=== PATIENT | male | born 1935 | race Caucasian/White ===

== ENCOUNTER 2018-05-27 17:30 | Inpatient (IN) | payer MEDICARE, BC ==
[2018-05-27 18:03] LABS: #Eosinphils 0.7 thou/uL (0.0-0.7); #Lymphocytes 1.3 thou/uL (1.20-3.40); #Neutrophils 4.3 thou/uL (1.40-6.50); %Basophils 0.7 % (0.0-1.0); %Eosinophils 10.1 % (0.0-10.0); %Lymphocytes 17.9 % (21.0-51.0); %Monocytes 13.5 % (0.0-10.0); %Neutrophils 57.9 % (42.0-75.0); Hemoglobin 12.3 g/dL (14.0-18.0); Mean Corpuscular HGB CONC 33.8 g/dL (32.0-36.0); Mean Corpuscular Hemoglobin 32.2 pg (27.0-31.0); Mean Corpuscular Volume 95.4 fL (78.0-98.0); Mean Platelet Volume 8.1 fL (7.4-10.4); Platelet Count 261 thou/uL (130-400); RBC Distribution Width 12.3 % (11.5-14.5); Red Blood Cell (RBC) Count 3.83 mill/uL (4.70-6.10); White Blood Cell (WBC) Count 7.4 thou/uL (4.8-10.8)
[2018-05-27 18:23] LABS: ALT (SGPT) 23 U/L (8-55); AST (SGOT) 21 U/L (5-34); Albumin 3.3 g/dL (3.4-4.8); Alkaline Phosphatase 56 U/L (40-150); Anion Gap 10 mmol/L (10-20); BUN (Urea Nitrogen) 18 mg/dL (8.4-25.7); Bilirubin, Total 0.7 mg/dL (0.2-1.2); CK (CPK) 70 U/L (30-200); Calc. Creatinine Clearance 0 mL/min (70-130); Calcium 9.1 mg/dL (7.8-10.44); Carbon Dioxide 30 mmol/L (23-31); Chloride 104 mmol/L (98-107); Estimated GFR-MDRD Greater than 90; Globulin 2.6 g/dL (2.4-3.5); Glucose 106 mg/dL (83-110); Lipase 41 U/L (8-78); Potassium 3.7 mmol/L (3.5-5.1); Protein, Total 5.9 g/dL (5.8-8.1); Sodium 140 mmol/L (136-145)
--- NOTE | 2018-05-27 19:19 | RAD ---
CHEST ONE VIEW: 05/27/18 HISTORY: Patient vomited blood, intermittent left sided chest pain. COMPARISON: 12/31/09 study, most recent study available for comparison. Heart size is enlarged with postop sternotomy changes. Chronic lung changes are seen. Pleural changes in the left lung appears stable with what may be chronic pneumothorax. This is unchanged in appearan ce since the previous exam. There are pleural calcifications noted. IMPRESSION: Chronic lung change. Stable exam. POS: MARCIANO
[2018-05-27 21:20] VITALS: BMI 23.8
[2018-05-27] MEDS ORDERED: Ondansetron PF 4 MG/2 ML Vial IVP PRN (22:40)
[2018-05-27] MEDS ORDERED: Ondansetron ODT 4 MG TAB SL PRN (22:40)
[2018-05-27] MEDS ORDERED: Aspirin 325 MG TAB PO SCH (22:45)
[2018-05-28] MEDS ORDERED: Dronedarone HCl 400 MG TAB PO SCH (00:45)
[2018-05-28] MEDS ORDERED: Ezetimibe 10 MG TAB PO SCH (00:45)
[2018-05-28] MEDS ORDERED: ALPRAZolam 0.25 MG TAB PO SCH (00:45)
[2018-05-28] MEDS ORDERED: Metoprolol Tartrate 100 MG TAB PO SCH (00:45)
--- NOTE | 2018-05-28 04:41 | HP ---
CHIEF COMPLAINT: Hemoptysis. HISTORY OF PRESENT ILLNESS: The patient is an 83-year-old male with past medical history of hypertension; atrial fibrillation, on Eliquis; benign prostate hyperplasia; history of lung abscess, who presented to the hospital with hemoptysis. The patient stated that 3 or 4 days ago, he started to have some pain to his left chest area. The patient does have a history of left upper lobe lobectomy due to an abscess. There was some question about the patient being treated for TB; however, the patient states that he was never diagnosed with TB. The patient stated that today, he felt the urge to cough when he coughed. He noticed some bright blood, about a teaspoon of bright blood, which concerned him, so he came into the ER for further evaluation. He denied any lightheadedness, chest pain, or unsteadiness. The patient while he was in the hospital had another urge to cough where he coughed up some dark blood. He did save it in the napkin and showed it to me it was a small amount of some dark blood. The patient denies any recent upper respiratory tract infection. He denies any fevers or chills. The patient stated that he has recently been feeling well except for the eczema, he has been using the cream for it, and also for the past 3 or 4 weeks, he has been having lower leg swelling, which he has been on diabetic, which has been managed by Cardiology. PAST MEDICAL HISTORY: He has a history of hypertension; atrial fibrillation, currently on Eliquis. He has a history of GI bleed, on Pradaxa. He has a history of benign prostate hyperplasia. He also has a history of eczema. PAST SURGICAL HISTORY: He has had angioplasties. He has had CABG x4, I believe in 2000. He has also had left upper lobe lobectomy. He has had EGDs also. FAMILY HISTORY: No history of heart disease, cancers, or stroke. SOCIAL HISTORY: He is a former smoker, quit in 1973. No alcohol use, drug use. He is a full code. Lives with his family. ALLERGIES: HE IS ALLERGIC TO IODINE AND SULFA. MEDICATIONS: As of the followin. Levothyroxine 25 mcg daily. 2. Lasix 40 mg daily. 3. Zetia 10 mg at bedtime. 4. Multaq 400 mg b.i.d. 5. Xanax 0.25 at bedtime. 6. Aspirin 81 mg b.i.d. 7. Apixaban 5 mg b.i.d. 8. Propranolol 20 mg daily. 9. Clonidine 0.1 p.r.n. 10. Hydralazine 50 mg b.i.d. 11. Metoprolol 150 mg at bedtime. 12. Flomax 0.4 daily. REVIEW OF SYSTEMS: All negative except for the ones mentioned above in HPI. PHYSICAL EXAMINATION: VITAL SIGNS: Temperature of 97.7, pulse 87, respiratory rate 20, oxygen saturation 92% on room air, and blood pressure 138/62. GENERAL: He is awake, alert, and oriented x3. Does not appear in any distress. CV: S1 and S2 present. No murmurs, rubs, or gallops. LUNGS: Clear to auscultation. No rhonchi or wheezes noted. ABDOMEN: Soft and nontender. Bowel sounds are present x2. EXTREMITIES: No edema. Pedal pulses are present x2. SKIN: He has gotten a significant maculopapular rash to his bilateral lower extremities and back area. NEUROLOGIC: No focal deficits noted. HEENT: Normocephalic and atraumatic. No lymphadenopathy noted. LABORATORY RESULTS: As of the following; WBCs of 7.4, hemoglobin of 12.3, hematocrit of 36.6, and platelets of 261. Chemistry; sodium of 144, potassium 4.4, BUN of 13, creatinine 0.95. His LFTs are normal. His BNP was 1057. Troponin x3 were negative. Urine was normal. The patient did have a chest x-ray, that just indicated chronic lung changes. ASSESSMENT AND PLAN: The patient is an 83-year-old male,who comes to the hospital for hemoptysis. 1. Hemoptysis. He has only had two episodes. His H and H currently are stable. I do not have a previous one for comparison. Pulmonology has been consulted. I did explain to the patient that this could have just been combination and the fact that he is on Eliquis and has had a lobectomy, possibly could have had a scar tissue which could have been irritated and causing him to have hemoptysis. At this time, conservative management unless the patient starts to have extensive amounts of hemoptysis. At this time, a bronchoscopy would be necessary. However, I will defer the further plan to Pulmonary. 2. Atrial fibrillation, currently on Eliquis. We will hold the Eliquis. Cardiology has been consulted. The patient in the past also has had a bleed on Pradaxa. He recently had a bleed, I believe in his right retinal area and his Eliquis was held. 3. Hypertension, we will continue his home medications. 4. Hypothyroidism, we will continue his home medications. 5. Deep vein thrombosis prophylaxis, we will put the patient on some SCDs for now and continue to monitor. At this point, I do not think this patient requires a CT. However, I will defer that to Pulmonary since he is allergic to iodine. Job ID: [id number]
[2018-05-28 05:11] LABS: #Eosinphils 0.9 thou/uL (0.0-0.7); #Lymphocytes 0.9 thou/uL (1.20-3.40); #Monocytes 0.8 thou/uL (0.11-0.59); #Neutrophils 3.8 thou/uL (1.40-6.50); %Basophils 0.7 % (0.0-1.0); %Eosinophils 14.2 % (0.0-10.0); %Lymphocytes 13.7 % (21.0-51.0); %Monocytes 12.1 % (0.0-10.0); %Neutrophils 59.4 % (42.0-75.0); Hemoglobin 10.9 g/dL (14.0-18.0); Mean Corpuscular HGB CONC 33.9 g/dL (32.0-36.0); Mean Corpuscular Hemoglobin 32.9 pg (27.0-31.0); Mean Corpuscular Volume 96.9 fL (78.0-98.0); Platelet Count 220 thou/uL (130-400); RBC Distribution Width 12.3 % (11.5-14.5); Red Blood Cell (RBC) Count 3.32 mill/uL (4.70-6.10); White Blood Cell (WBC) Count 6.5 thou/uL (4.8-10.8)
[2018-05-28 05:36] LABS: Anion Gap 8 mmol/L (10-20); BUN (Urea Nitrogen) 14 mg/dL (8.4-25.7); Calc. Creatinine Clearance 89 mL/min (70-130); Carbon Dioxide 29 mmol/L (23-31); Chloride 107 mmol/L (98-107); Estimated GFR-MDRD Greater than 90; Glucose 80 mg/dL (83-110); Potassium 3.2 mmol/L (3.5-5.1); Sodium 141 mmol/L (136-145)
[2018-05-28] MEDS: Levothyroxine Sodium 25 MCG TAB PO SCH (06:02)
[2018-05-28] MEDS: Dronedarone HCl 400 MG TAB PO SCH ×2 (07:59→16:16)
[2018-05-28] MEDS: Furosemide 40 MG TAB PO SCH (08:00)
[2018-05-28] MEDS: Tamsulosin HCl 0.4 MG CAP PO SCH (08:00)
[2018-05-28] MEDS: hydrALAZINE 25 MG TAB PO SCH ×3 (10:49→21:22)
--- NOTE | 2018-05-28 10:49 | CON ---
DATE OF CONSULTATION: HISTORY OF PRESENT ILLNESS: Russell Maldonado is an 83-year-old gentleman, retired from [employer], who smoked a pack a day for about 20 years, quit smoking almost 40 years ago, who presents with a 2-day history of hemoptysis, coughed up 2 times bright red blood, last one was last night, 2 o'clock in the morning. His x-ray shows extensive scarring, pleural thickening in the left chest with what appears to be maybe a retrocardiac density of left lung. Denies any fever, chills, or sweats. Denies any epistaxis. The patient on most days can walk at least a couple of miles without getting markedly short of breath. He was diagnosed to have Mycobacterium avium complex TB in 1975 in [place], received 2 years of treatment. He eventually underwent what appears to be a left upper lobe lobectomy for necrotizing infection as per the patient. He has bronchitis on a yearly basis, takes his flu shot. PAST MEDICAL HISTORY: Coronary artery disease, status post 2 angioplasties, status post 2 CABGs; hypothyroidism; BPH; hyperlipidemia; and high cholesterol. PAST SURGICAL HISTORY: Left upper lobe lobectomy; bypass surgery; 2 angioplasties; and extensive rash, apparently eczema. Has had tail puller see him including skin biopsy, nondiagnostic. SOCIAL HISTORY: As noted. Alcohol, none. HOME MEDICATIONS: 1. Flomax 0.4. 2. Synthroid 25. 3. Inderal 20. 4. Hydralazine 50. 5. Xanax p.r.n. 6. Lopressor 150. 7. Multaq 400 twice a day. 8. Lasix 40. 9. Zetia 10. 10. Catapres 0.1. 11. Aspirin 81. 12. Eliquis 5 mg twice a day. ALLERGIES: SULFA, IODINE. REVIEW OF SYSTEMS: Otherwise, ten-point negative. OBJECTIVE: GENERAL: On examination, no acute distress. VITAL SIGNS: Sats are 96% on room air, respirations 18, temperature 98, pulse 61, and blood pressure 119/57. CHEST: Bilateral rhonchi and crackles. CARDIAC: Normal S1 and S2. No gallops. ABDOMEN: No masses. LABORATORY DATA: White count of 6000, H and H of 10 and 32, and platelet count is normal. Lytes are normal. Creatinine is unremarkable. BNP is elevated. IMPRESSION: 1. Hemoptysis, bronchitis, bronchiectasis. 2. Congestive heart failure. 3. Coronary artery disease. 4. Former smoker. 5. Left upper lobe lobectomy. PLAN: 1. CT chest being ordered. 2. He is allergic to iodine without contrast. 3. diagnostic bronchoscopy. Consultation note, 70 minutes, 50% direct patient care. Job ID: [id number]
--- NOTE | 2018-05-28 11:12 | CT ---
CT CHEST PERFORMED WITHOUT CONTRAST ENHANCEMENT: Comparison: 05-16-18 History: Hemoptysis, shortness of breath. Left sided chest pain. History of left upper lobe lobectomy by history. FINDINGS: Volume loss changes of the left lung are noted. There is abrupt termination of the left upper lobe br onchus consistent with the history of left upper lobe lobectomy. There is extensive pleural based teddy cifications seen. There has been development of a small left pleural effusion since the prior examina tion and development of the parenchymal changes mainly some ground glass opacity within the left lowe r lobe. Changes would suggest an acute infiltrative process developing. The right lung shows emphysem atous type change. Some parenchymal change in the right upper lobe appears to represent scar. There h as been development of a small amount of right sided effusion. Post op sternotomy changes are seen. No mediastinal adenopathy or mass. IMPRESSION: 1. Left upper lobe lobectomy change. Extensive left sided pleural based calcifications. 2. Development of small bilateral pleural effusions, left slightly larger than right, and some ground glass opacity in the left lower lobe which is new as compared to the prior exam, suggesting some dev eloping infiltrate in this area. 3. Incidental note is made of gallstones. POS: [facility]
[2018-05-28] MEDS ORDERED: Terbinafine 250 MG TAB PO SCH (15:00)
--- NOTE | 2018-05-28 18:59 | PDOC.PN ---
- Subjective Encounter Start Date: 05/28/18 Encounter Start Time: 18:55 Subjective: f/u for hemoptysis on chronic Eliquis. Approx 3 episodes of small amount -: of hemoptysis today. Off Eliquis and ASA. - Objective MAR Reviewed: Yes Vital Signs & Weight: Vital Signs (12 hours) Temp Pulse Resp BP BP Pulse Ox 05/28/18 16:14 97.7 F 65 18 136/61 95 05/28/18 11:49 97.6 F 66 16 109/56 L 96 05/28/18 10:49 61 137/60 05/28/18 07:47 97.8 F 61 18 119/57 L 96 Weight Weight 175 lb 4.8 oz I&O: 05/27/18 05/28/18 05/29/18 06:59 06:59 06:59 Intake Total 720 Balance 720 Result Diagrams: 05/28/18 04:51 05/28/18 04:51 Additional Labs: Laboratory Tests 05/27/18 05/27/18 05/27/18 17:42 17:42 17:42 Hgb Neutrophils % Potassium 3.7 Troponin I 0.015 B-Natriuretic Peptide 1057.0 H 05/27/18 05/27/18 05/28/18 17:42 20:30 00:19 Hgb 12.3 L Neutrophils % 57.9 Potassium Troponin I 0.010 0.018 B-Natriuretic Peptide Radiology Reviewed by me: Yes (CT chest - chronic changes, ?infiltrate in LLL) EKG Reviewed by me: Yes (Tele - SR in 90's) Phys Exam - Physical Examination Constitutional: NAD HEENT: PERRLA, sclera anicteric, oral pharynx no lesions Neck: no nodes, no JVD, supple, full ROM S1, S2 Cardiovascular: RRR, no significant murmur, no rub, gallop Gastrointestinal: soft, non-tender, no distention, positive bowel sounds Musculoskeletal: no edema, pulses present Neurological: normal sensation, moves all 4 limbs Psychiatric: A&O x 3 Skin: normal turgor, cap refill <2 seconds Dx/Plan (1) Hemoptysis Code(s): R04.2 - HEMOPTYSIS Status: Acute Comment: Likely due to Eliquis, ? 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 (CURRENT) USE OF ANTICOAGULANTS Status: Chronic Comment: Hold Song (3) HTN (hypertension) Code(s): I10 - ESSENTIAL (PRIMARY) HYPERTENSION Status: Chronic Qualifiers: Hypertension type: essential hypertension Qualified Code(s): I10 - Essential (primary) hypertension Comment: Resume home BP regimen, serial monitoring (4) Acute blood loss anemia Code(s): D62 - ACUTE POSTHEMORRHAGIC ANEMIA Status: Acute Comment: Secondary to hemoptysis, serial H/H monitoring - Plan plan discussed w/ family, continue antibiotics, social psychologist, out of bed/ ambulate, DVT proph w/SCDs Stable currently -: D/C Eliquis/ASA -: Start Cefepime 2gm IV BID -: ? Bronchoscopy per Pulmonology -: AM lab: CBC * Convert to inpt status
--- NOTE | 2018-05-28 19:23 | CON ---
DATE OF CONSULTATION: HISTORY OF PRESENT ILLNESS: Russell Maldonado is an 83-year-old white male with longstanding history of coronary artery disease. I have followed for 30 years since 1988. In March 1988 and in January 1989, he underwent PTCA of the proximal LAD. He had a totally occluded diagonal that filled retrograde at that time. In April 2000, he had inferior ischemia on stress echo testing and underwent cardiac catheterization. This revealed totally occluded right coronary artery, totally occluded diagonal, totally occluded small obtuse marginal, 70% proximal tandem lesions in the LAD and lesion of the proximal third. Ejection fraction was about 30%. He underwent CABG x4 with BELL to the LAD and saphenous vein graft to the obtuse marginal one, diagonal and right posterior descending by Dr. Warner. After surgery, he continued to follow up regularly in the office. It was somewhat difficult to control hypertension. He underwent renal angiogram by Dr. Villatoro, which revealed no evidence of renal artery stenosis. In April 2007, he was seen in the office with palpitations and shortness of breath and found to be in atrial fibrillation. He was started on Coumadin as well as Toprol-XL for rate control. One week later, he was seen back in the office and was in sinus rhythm. He had previous history of GI bleeds and was complaining of nosebleeds and ultimately in June 2007, Coumadin was discontinued. He was admitted in December 2009 when he began to feel palpitations as well as shortness of breath and weakness. He presented to the emergency room, was in atrial fibrillation with fast ventricular response. He was given Lovenox 1 mg/kg. During that hospitalization in retrospect, he has stated that he may have been in atrial fibrillation for 2 or 3 weeks. He was placed on Lovenox, Coumadin, and Multaq 400 mg b.i.d. After loading with Multaq, he underwent transesophageal echo by Dr. Santillan and was found to have no evidence of left atrial thrombus. There was [id number] mitral regurgitation, tricuspid regurgitation, mild aortic insufficiency. With 200 joules, he was cardioverted to sinus rhythm. He had significant improvement in his energy level after cardioversion and as noted above in retrospect, he may have been in it for several weeks. He continued to be in sinus rhythm. He is transitioned from Coumadin to Pradaxa. In February 2011, he was admitted with upper gastrointestinal bleed. Pradaxa was discontinued and he was transfused. He was only found to have gastritis. Ultimately, he was transitioned to Eliquis. His most recent significant problem has been does not seem to clear. Eliquis was stopped for a period of time, hydrochlorothiazide was stopped, and irbesartan has been stopped various times and he continues with the rash. When he was last seen in the office on May 06, 2018, he had significant lower extremity edema and he was started on hydrochlorothiazide and ultimately furosemide. He now is admitted with hemoptysis. He does have a history of infection with Mycobacterium avium in 1975 and received 2 years of treatment. With cough, he may have a feeling of some discomfort in his chest. 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 PAST SURGICAL HISTORY: CABG, resection of left lower lobe via thoracotomy for bronchiectasis and atypical tuberculosis. MEDICATIONS: 1. Eliquis 5 mg b.i.d. 2. Multaq 400 mg daily. 3. Flomax 0.4 mg daily. 4. Xanax 0.25 q.h.s. 5. Aspirin 81 b.i.d. 6. Clonidine 0.1 p.r.n. 7. Zetia 10 mg q.h.s. 8. Furosemide 40 daily. 9. Hydralazine 50 b.i.d. 10. Synthroid 25 mcg daily. 11. Propranolol 20 mg daily p.r.n. ALLERGIES: IODINE AND SULFA. SOCIAL HISTORY: He stopped smoking in the 70s. He does not drink. FAMILY HISTORY: Father had myocardial infarction, at the age of 60. REVIEW OF SYSTEMS: A 10-point review of systems is otherwise unremarkable. PHYSICAL EXAMINATION: VITAL SIGNS: Blood pressure 136/61, pulse 65. HEENT: PERRL. CHEST: Reveals occasional crackles on the left. CARDIOVASCULAR: S1 and S2 normal without any S3, S4, or murmurs. ABDOMEN: Normal bowel sounds without tenderness or organomegaly. EXTREMITIES: Reveal 1+ pretibial edema, however, this is better than he was last seen 3 weeks ago. NEUROLOGIC: Grossly intact. SKIN: Reveals diffuse erythematous rash. LABORATORY DATA: EKG revealed normal sinus rhythm with right bundle-branch block. Cardiac enzymes are unremarkable. Hemoglobin 10.9, hematocrit 32.2, white count 6500, platelets 220,000. Sodium 141, potassium 3.2, chloride 107, carbon dioxide 29, BUN 14, creatinine 0.71. BNP 1057.0. IMPRESSION: 1. Hemoptysis. Eliquis have been discontinued at this time. 2. Generalized rash. This does not appear to be due to irbesartan, hydrochlorothiazide, or Eliquis. 3. Status post coronary artery bypass graft. 4. Paroxysmal atrial fibrillation. 5. History of hypercholesterolemia. 6. Hypertension. 7. Positive family history. 8. Varicose veins. PLAN: Eliquis has been discontinued. We will continue to follow the patient with you. There has been some concern that Multaq may be the cause of his rash. This will be a good time to discontinue the Multaq and transition to another antiarrhythmic such as propafenone to see if the Multaq is playing a role in his rash. I do not feel that his atypical chest discomfort needs to be further evaluated. Job ID: [id number]
[2018-05-28] MEDS: Ezetimibe 10 MG TAB PO SCH (21:12)
[2018-05-28] MEDS: Metoprolol Tartrate 100 MG TAB PO SCH (21:12)
[2018-05-28] MEDS: Cefepime 2 GM in Sodium Chloride 0.9% 100 ML IVPB SCH (21:13)
[2018-05-28] MEDS: ALPRAZolam 0.25 MG TAB PO SCH (22:52)
[2018-05-28] MEDS: Propafenone HCl 150 MG TAB PO SCH (23:49)
[2018-05-29] MEDS: Levothyroxine Sodium 25 MCG TAB PO SCH (05:25)
[2018-05-29] MEDS: Propafenone HCl 150 MG TAB PO SCH ×3 (05:29→21:44)
[2018-05-29 06:20] LABS: Band 3 % (5-11); Eosinophils 8 % (0-10); Hemoglobin 11.3 g/dL (14.0-18.0); Lymphocytes 4 % (21-51); MDiff Complete? YES; Mean Corpuscular HGB CONC 33.6 g/dL (32.0-36.0); Mean Corpuscular Hemoglobin 32.5 pg (27.0-31.0); Mean Corpuscular Volume 96.8 fL (78.0-98.0); Mean Platelet Volume 7.9 fL (7.4-10.4); Monocytes 12 % (0-10); Neutrophil 73 % (42-75); Platelet Count 250 thou/uL (130-400); RBC Distribution Width 12.3 % (11.5-14.5); Red Blood Cell (RBC) Count 3.46 mill/uL (4.70-6.10); White Blood Cell (WBC) Count 7.6 thou/uL (4.8-10.8)
[2018-05-29] MEDS ORDERED: Potassium Chloride 10 MEQ TAB PO SCH (08:00)
[2018-05-29] MEDS: Tamsulosin HCl 0.4 MG CAP PO SCH (08:36)
[2018-05-29] MEDS: Sodium Chloride 0.9% 10 ML ONE (08:36)
[2018-05-29] MEDS: Furosemide 40 MG TAB PO SCH (08:37)
[2018-05-29] MEDS: hydrALAZINE 25 MG TAB PO SCH ×2 (08:39→21:42)
[2018-05-29] MEDS ORDERED: Terbinafine 250 MG TAB PO SCH (09:00)
[2018-05-29] MEDS: Cefepime 2 GM in Sodium Chloride 0.9% 100 ML IVPB SCH ×3 (09:49→17:12)
--- NOTE | 2018-05-29 09:50 | PRG ---
DATE OF SERVICE: SUBJECTIVE: Russell Maldonado is awake, alert, responsive, no further hemoptysis. OBJECTIVE: Temperature 97, pulse 71, respiration 18, sats 98% on room air, blood pressure is 109/55. CHEST: Decreased breath sounds, minimal rhonchi, crackles left base. CARDIAC: Normal S1, S2. No gallops. ABDOMEN: No masses. H and H are stable 11 and 33. IMPRESSION: 1. Hemoptysis. Noted bronchiectatic changes, left base, probably accounting for some hemoptysis, probably aggravated by the Eliquis. 2. Status post left upper lobe lobectomy. PLAN: Pulmonary weeks much improved, p.o. antibiotics. Disposition as per Cardiology. We will follow. Job ID: [id number]
[2018-05-29] MEDS: Terbinafine 250 MG TAB PO SCH (11:41)
--- NOTE | 2018-05-29 12:57 | PQF ---
OBDULIO RAINES MALIK MD [id number] CLINICAL DOCUMENTATION IMPROVEMENT CLARIFICATION FORM: ICD-10 Updated PLEASE DO AN ADDENDUM TO THE PROGRESS NOTE WITH ANY DOCUMENTATION UPDATES OR ADDITIONS AND CARRY THROUGH TO DC SUMMARY. THANK YOU. DATE: 05/29/18 ATTN: Dr. Dumont Please exercise your independent, professional judgment in responding to the clarification form. Clinical indicators are provided on the bottom of this form for your review Please check appropriate box(s): HEART FAILURE: A. TYPE: [ ] Systolic / HFrEF [ ] Diastolic / HFpEF [ ] Combined Systolic / Diastolic B. ACUITY [ ] Acute [ ] Acute on Chronic [ ] Chronic [ ] Other diagnosis [ ] Unable to determine In addition, please specify: Present on Admission (POA): [ ] Yes [ ] No [ ] Unable to determine For continuity of documentation, please document condition throughout progress notes and discharge summary. Thank You. CLINICAL INDICATORS - SIGNS / SYMPTOMS / LABS 05/28 Card note: LAST EF 30% IN [facility] 2000 Peripheral edema--> +1 pretibial edema per 05/28 Cardiology note Elevated BNP --> BNP 1057 per 05/27 lab RISKS: History of CAD s/p CABG/HTN 05/28 Card note History of CHF per 05/28 pulmonary note Seen in the office on May 06, 2018, he had significant lower extremitiy edema and started on hctz and ultimately furosemide 05/28 Card note TREATMENTS: Administration of BB--> metoprolol 05/28 to date per MAR Cardiac monitoring / telemetry 05/27 to date per orders Diuretics--> lasix po 05/28 to date per APR Thank you, Geraldine Swan RN, CCDS (This form is maintained as a part of the permanent medical record) 2015 [employer] All Rights Reserved Geraldine Swan RN, BSN, CCDS [email or web address] MEDICAL CENTERLeila
[2018-05-29] MEDS ORDERED: hydrALAZINE 25 MG TAB PO PRN (16:07)
--- NOTE | 2018-05-29 16:27 | PDOC.PN ---
- Subjective Encounter Start Date: 05/29/18 Encounter Start Time: 15:00 Patient seen and examined for hemoptysis. No new episodes. No CP/SOB. No other complaints. No overnight events - Objective MAR Reviewed: Yes Vital Signs & Weight: Vital Signs (12 hours) Temp Pulse Resp BP BP Pulse Ox 05/29/18 15:29 97.7 F 76 18 126/61 98 05/29/18 11:38 97.8 F 65 18 120/58 L 98 05/29/18 08:35 97.9 F 71 18 109/55 L 98 Weight Weight 179 lb 2 oz I&O: 05/28/18 05/29/18 05/30/18 06:59 06:59 06:59 Intake Total 720 750 200 Output Total 800 175 Balance 720 -50 25 Result Diagrams: 05/29/18 04:44 05/28/18 04:51 EKG Reviewed by me: Yes (Tele SR) Phys Exam - Physical Examination Constitutional: NAD Respiratory: no wheezing, no rhonchi Cardiovascular: RRR, no rub Gastrointestinal: soft, non-tender, positive bowel sounds Musculoskeletal: no edema Neurological: non-focal, moves all 4 limbs Dx/Plan - Plan DVT proph w/SCDs IMPRESSION: Hemoptysis Acute on chronic systolic heart failure - ACC stage C Acute blood loss anemia Gen rash ?etio ?Multaq induced CAD Paroxysmal Afib HTN Hypokalemia HLD PLAN: Eliquis/ASA on hold On IV Lasix On IV Atbx Replace Potassium Cardio/Pulm following Multaq dced on Propafenone Cont current meds as below AM labs DC in 24-48 hr if ok with consultants Review of Systems - Review of Systems Respiratory: negative: Cough, Dry, Shortness of Breath, Hemoptysis, SOB with Excertion, Pleuritic Pain, Sputum, Wheezing Cardiovascular: negative: chest pain, palpitations, orthopnea, paroxysmal nocturnal dyspnea, edema, light headedness, other Gastrointestinal: negative: Nausea, Vomiting, Abdominal Pain, Diarrhea, Constipation, Melena, Hematochezia, Other - Medications/Allergies Allergies/Adverse Reactions: Allergies Allergy/AdvReac Type Severity Reaction Status Date / Time iodine Allergy Verified 05/27/18 21:44 Sulfa (Sulfonamide Allergy Verified 05/27/18 21:44 Antibiotics) Medications: Current Medications Alprazolam (Xanax) 0.25 mg PO HS [facility] Last Admin: 05/28/18 22:52 Dose: 0.25 mg Ezetimibe (Zetia) 10 mg PO HS [facility] Last Admin: 05/28/18 21:12 Dose: 10 mg Furosemide (Lasix) 40 mg PO DAILY [facility] Last Admin: 05/29/18 08:37 Dose: 40 mg Hydralazine HCl (Apresoline) 50 mg PO BID [facility] Last Admin: 05/29/18 08:39 Dose: 50 mg Hydralazine HCl (Apresoline) 50 mg PO DAILY PRN PRN Reason: SBP GREATER THAN 160 Cefepime HCl 2 gm/ Sodium (Chloride) 100 mls @ 200 mls/hr IVPB 0600,1800 [facility] Levothyroxine Sodium (Synthroid) 25 mcg PO 0600 [facility] Last Admin: 05/29/18 05:25 Dose: 25 mcg Metoprolol Tartrate (Lopressor) 150 mg PO HS [facility] Last Admin: 05/28/18 21:12 Dose: 150 mg (Pimecrolimus [ Elidel 1% Cream] 1 Applic) 1 each TOP BID PRN PRN Reason: eczema Potassium Chloride (Klor-Con 10) 20 meq PO BID-[facility] Stop: 05/29/18 17:01 Last Admin: 05/29/18 08:32 Dose: 20 meq Propafenone HCl (Rythmol) 150 mg PO Q8HR [facility] Last Admin: 05/29/18 13:44 Dose: 150 mg Tamsulosin HCl (Flomax) 0.4 mg PO DAILY [facility] Last Admin: 05/29/18 08:36 Dose: 0.4 mg Terbinafine HCl (Lamisil) 250 mg PO 1200 [facility] Last Admin: 05/29/18 11:41 Dose: 250 mg
[2018-05-29] MEDS ORDERED: Furosemide 40 MG/4 ML VIAL SLOW IVP SCH (16:45)
[2018-05-29] MEDS ORDERED: Sodium Chloride 0.9% 10 ML ONE (17:03)
[2018-05-29] MEDS: Potassium Chloride 20 MEQ TAB PO SCH (17:59)
[2018-05-29] MEDS: Ezetimibe 10 MG TAB PO SCH (21:42)
[2018-05-29] MEDS: ALPRAZolam 0.25 MG TAB PO SCH (22:50)
[2018-05-29] MEDS: Metoprolol Tartrate 100 MG TAB PO SCH (22:50)
[2018-05-30] MEDS: Cefepime 2 GM in Sodium Chloride 0.9% 100 ML IVPB SCH ×2 (05:23→17:25)
[2018-05-30] MEDS: Furosemide 40 MG/4 ML VIAL SLOW IVP SCH ×2 (05:23→14:50)
[2018-05-30] MEDS: Levothyroxine Sodium 25 MCG TAB PO SCH (05:24)
[2018-05-30] MEDS: Propafenone HCl 150 MG TAB PO SCH ×3 (05:28→22:03)
[2018-05-30 05:53] LABS: Hemoglobin 13.3 g/dL (14.0-18.0); Platelet Count 323 thou/uL (130-400)
[2018-05-30 06:09] LABS: Anion Gap 11 mmol/L (10-20); BUN (Urea Nitrogen) 20 mg/dL (8.4-25.7); Calc. Creatinine Clearance 63 mL/min (70-130); Calcium 8.9 mg/dL (7.8-10.44); Carbon Dioxide 28 mmol/L (23-31); Chloride 106 mmol/L (98-107); Estimated GFR-MDRD 70; Glucose 108 mg/dL (83-110); Magnesium 2.4 mg/dL (1.6-2.6); Potassium 3.7 mmol/L (3.5-5.1); Sodium 141 mmol/L (136-145)
[2018-05-30] MEDS: hydrALAZINE 25 MG TAB PO SCH ×2 (09:28→20:59)
[2018-05-30] MEDS: Potassium Chloride 20 MEQ TAB PO SCH ×2 (09:28→17:27)
[2018-05-30] MEDS: Tamsulosin HCl 0.4 MG CAP PO SCH (09:28)
[2018-05-30] MEDS: Sodium Chloride 0.9% 10 ML ONE ×2 (09:30→14:50)
[2018-05-30] MEDS: Terbinafine 250 MG TAB PO SCH (12:28)
--- NOTE | 2018-05-30 12:55 | PDOC.PN ---
- Subjective Encounter Start Date: 05/30/18 Encounter Start Time: 12:54 Mr. Maldonado was seen today in follow-up of Hemoptysis. He continues to cough up some blood, but it is usually only once or twice in the morning, and then that is all. He does not have any other complaints. - Objective MAR Reviewed: Yes Vital Signs & Weight: Vital Signs (12 hours) Temp Pulse Resp BP BP BP BP 05/30/18 12:00 97.4 F L 69 18 138/69 05/30/18 09:28 95 117/58 L 05/30/18 08:00 97.5 F L 95 16 117/58 L 05/30/18 04:00 97.4 F L 66 16 104/59 L Pulse Ox 05/30/18 12:00 05/30/18 09:28 05/30/18 08:00 98 05/30/18 04:00 93 L Weight Weight 181 lb 9 oz I&O: 05/29/18 05/30/18 05/31/18 06:59 06:59 06:59 Intake Total 750 1760 Output Total 800 1715 Balance -50 45 Result Diagrams: 05/30/18 05:22 05/30/18 05:22 Phys Exam - Physical Examination HEENT: PERRLA Respiratory: no wheezing, no rales, no rhonchi Cardiovascular: no significant murmur, no rub, irregular Gastrointestinal: soft, non-tender, no distention, positive bowel sounds Musculoskeletal: no edema Dx/Plan (1) Bronchiectasis Code(s): J47.9 - BRONCHIECTASIS, UNCOMPLICATED Status: Acute (2) Hemoptysis Code(s): R04.2 - HEMOPTYSIS Status: Acute Comment: Likely due to Eliquis, ? LLL infectious process, Pulmonology consulted and considering bronchoscopy, serial H/H, start Cefepime 2gm IV BID (3) Chronic anticoagulation Code(s): Z79.01 - MANAGER PORT (CURRENT) USE OF ANTICOAGULANTS Status: Chronic Comment: Hold Eliquis (4) HTN (hypertension) Code(s): I10 - ESSENTIAL (PRIMARY) HYPERTENSION Status: Chronic Qualifiers: Hypertension type: essential hypertension Qualified Code(s): I10 - Essential (primary) hypertension Comment: Resume home BP regimen, serial monitoring (5) Atrial fibrillation Code(s): I48.91 - UNSPECIFIED ATRIAL FIBRILLATION Status: Chronic Qualifiers: Atrial fibrillation type: paroxysmal Qualified Code(s): I48.0 - Paroxysmal atrial fibrillation - Plan * Hemoptysis- this is presumed to be due to Bronchiectasis, while on anticoagulants. Elquis and aspirin are on hold * HTN- blood pressure is stable. * AFIB- his heart rate is stable * Echo has been ordered by Dr. Chicas, and home when cleared by Cardiology
--- NOTE | 2018-05-30 13:18 | PRG ---
DATE OF SERVICE: 05/30/2018 SUBJECTIVE: Mr. Maldonado is still coughing up occasional blood. Otherwise, he is breathing well and has no complaints. OBJECTIVE: VITAL SIGNS: Temperature is 97.4, pulse 69, blood pressure 117/50, O2 saturation 98%, and blood pressure 130/69. HEENT: Unremarkable. NECK: No JVD. CHEST: Fairly clear. CARDIAC: S1 and S2, irregular. ABDOMEN: Soft. EXTREMITIES: No edema. LABORATORY DATA: Hemoglobin 13.3 and platelet count 323. Sodium 141, BUN 20, creatinine 1.0, and glucose 108. ASSESSMENT: 1. Bronchiectasis with hemoptysis. 2. Status post left upper lobectomy. 3. Atrial fibrillation. PLAN: Continue the antibiotics. Should be able to switch to oral Omnicef if okay with primary team. I would treat him for a total of 10 days with antibiotics. Job ID: [id number]
[2018-05-30] MEDS ORDERED: Sodium Chloride 0.9% 10 ML ONE (16:50)
[2018-05-30] MEDS: Metoprolol Tartrate 100 MG TAB PO SCH (20:58)
[2018-05-30] MEDS: Ezetimibe 10 MG TAB PO SCH (21:01)
[2018-05-30] MEDS: ALPRAZolam 0.25 MG TAB PO SCH (21:02)
[2018-05-30] MEDS ORDERED: diphenhydrAMINE 25 MG CAP PO PRN (23:11)
[2018-05-31] MEDS: Furosemide 40 MG/4 ML VIAL SLOW IVP SCH ×2 (05:49→12:59)
[2018-05-31] MEDS: Propafenone HCl 150 MG TAB PO SCH ×2 (06:04→13:00)
[2018-05-31] MEDS: Cefepime 2 GM in Sodium Chloride 0.9% 100 ML IVPB SCH (06:04)
[2018-05-31] MEDS: Levothyroxine Sodium 25 MCG TAB PO SCH (06:04)
[2018-05-31 06:09] LABS: Anion Gap 10 mmol/L (10-20); BUN (Urea Nitrogen) 25 mg/dL (8.4-25.7); Calc. Creatinine Clearance 74 mL/min (70-130); Calcium 8.5 mg/dL (7.8-10.44); Carbon Dioxide 29 mmol/L (23-31); Chloride 108 mmol/L (98-107); Estimated GFR-MDRD 86; Glucose 86 mg/dL (83-110); Magnesium 2.2 mg/dL (1.6-2.6); Potassium 3.5 mmol/L (3.5-5.1); Sodium 143 mmol/L (136-145)
[2018-05-31] MEDS: hydrALAZINE 25 MG TAB PO SCH (08:45)
[2018-05-31] MEDS: Potassium Chloride 20 MEQ TAB PO SCH (08:45)
[2018-05-31] MEDS: Tamsulosin HCl 0.4 MG CAP PO SCH (08:45)
--- NOTE | 2018-05-31 12:23 | PDOC.PN ---
- Subjective Encounter Start Date: 05/31/18 Encounter Start Time: 12:21 Mr. Maldonado was seen in follow-up. He does not have any complaints. - Objective MAR Reviewed: Yes Vital Signs & Weight: Vital Signs (12 hours) Temp Pulse Resp BP BP Pulse Ox 05/31/18 08:45 70 116/58 L 05/31/18 08:35 97.8 F 70 20 116/58 L 97 05/31/18 04:00 97.6 F 64 16 113/56 L 95 Weight Weight 174 lb 9.6 oz I&O: 05/30/18 05/31/18 06/01/18 06:59 06:59 06:59 Intake Total 1760 2040 Output Total 1715 1750 Balance 45 290 Result Diagrams: 05/30/18 05:22 05/31/18 05:04 Phys Exam - Physical Examination HEENT: PERRLA Respiratory: no wheezing, no rales, no rhonchi, clear to auscultation bilateral Cardiovascular: RRR, no significant murmur, no rub Gastrointestinal: soft, non-tender, no distention, positive bowel sounds Musculoskeletal: no edema, pulses present Dx/Plan (1) Bronchiectasis Code(s): J47.9 - BRONCHIECTASIS, UNCOMPLICATED Status: Acute (2) Hemoptysis Code(s): R04.2 - HEMOPTYSIS Status: Acute Comment: Likely due to Eliquis, ? LLL infectious process, Pulmonology consulted and considering bronchoscopy, serial H/H, start Cefepime 2gm IV BID (3) Chronic anticoagulation Code(s): Z79.01 - USP (CURRENT) USE OF ANTICOAGULANTS Status: Chronic Comment: Hold Eliquis (4) HTN (hypertension) Code(s): I10 - ESSENTIAL (PRIMARY) HYPERTENSION Status: Chronic Qualifiers: Hypertension type: essential hypertension Qualified Code(s): I10 - Essential (primary) hypertension Comment: Resume home BP regimen, serial monitoring (5) Atrial fibrillation Code(s): I48.91 - UNSPECIFIED ATRIAL FIBRILLATION Status: Chronic Qualifiers: Atrial fibrillation type: paroxysmal Qualified Code(s): I48.0 - Paroxysmal atrial fibrillation - Plan * Bronchiectasis- stable * Anticoagulants are on hold * He is stable for discharge home..
[2018-05-31] MEDS: Terbinafine 250 MG TAB PO SCH (12:54)
[2018-05-31 14:05] VITALS: BP 138/61; TEMP 97.3
--- NOTE | 2018-06-01 00:51 | DIS ---
DATE OF ADMISSION: 05/27/2018 DATE OF DISCHARGE: 05/31/2018 PRIMARY CARE PHYSICIAN: Dr. Jennifer Richmond. DISCHARGE DISPOSITION: Home. PRIMARY DISCHARGE DIAGNOSES: 1. Hemoptysis. 2. Bronchiectasis. 3. Atrial fibrillation, on chronic anticoagulation. 4. Hypertension. 5. Hypothyroidism. DISCHARGE MEDICATIONS: Please note that aspirin and Eliquis are on hold until instructed by his primary care physician. He is to continue: 1. Propafenone 150 mg q.8. 2. Potassium chloride 20 mEq twice a day. 3. Flomax 0.4 mg daily. 4. Elavil as instructed. 5. MiraLAX 17 g daily. 6. Metoprolol 150 mg at bedtime. 7. Levothyroxine 25 mcg p.o. daily. 8. Hydralazine 50 mg twice daily. 9. Lasix 40 mg daily. 10. Zetia 10 mg at bedtime. 11. Xanax 0.25 mg at bedtime. PROCEDURES DONE DURING ADMISSION: The patient had a CT of the chest showing a left upper lobe ectomy change. There were extensive left pleural based calcifications and there was development of small bilateral pleural effusions, the left slightly greater than the right. The patient also had an echocardiogram in which the ejection fraction was estimated at 50% to 55%. There was moderate mitral regurgitation. Mild aortic regurgitation and moderate to severe tricuspid regurgitation. CODE STATUS: Full code. ALLERGIES: IODINE AND SULFA. HOSPITAL COURSE: Mr. Maldonado is a pleasant 83-year-old gentleman, who presented to the emergency room complaining of coughing up blood. This did happen for the last couple of days. He was admitted and evaluated by Pulmonology. It was felt that the hemoptysis was related to bronchiectasis and he was treated with antibiotics as a result of this. He was also seen by his product support rep as there was some concern that he had an allergic reaction to the Multaq. This was switched to propafenone and we will be holding his Eliquis and aspirin until he is further instructed by his primary care physician. Job ID: [id number]
== END 2018-05-31 14:30 | disposition home or self-care (01) | DRG 813 ==
LOC: ERS 17:30 → 2SW 18:40 → OBSVTOIN 18:40 → 2NO 05-28 20:14
PROVIDERS: ADMIT Emergency Medicine; ATTEND Emergency Medicine
DX: D68.32 Hemorrhagic disorder due to extrinsic circulating anticoagulants (principal); I50.23 Acute on chronic systolic (congestive) heart failure; R04.2 Hemoptysis; D62 Acute posthemorrhagic anemia; J47.9 Bronchiectasis, uncomplicated; T45.515A Adverse effect of anticoagulants, initial encounter; Y92.9 Unspecified place or not applicable; I11.0 Hypertensive heart disease with heart failure; R21 Rash and other nonspecific skin eruption; I25.10 Atherosclerotic heart disease of native coronary artery without angina pectoris; I48.0 Paroxysmal atrial fibrillation; E87.6 Hypokalemia; E78.5 Hyperlipidemia, unspecified; E03.9 Hypothyroidism, unspecified; I08.3 Combined rheumatic disorders of mitral, aortic and tricuspid valves; Z79.01 Long term (current) use of anticoagulants; Z87.891 Personal history of nicotine dependence; Z98.61 Coronary angioplasty status; Z95.1 Presence of aortocoronary bypass graft
CPT/HCPCS: 36415; 71045; 71250; 80048; 80053; 82550; 83690; 83735; 83880; 84484; 85007; 85014; 85018; 85025; 85027; 85049; 86850; 86900; 86901; 93005; 93010; 93306; 96360; J0692; J1940; J3490; Q0163

== ENCOUNTER 2019-08-03 12:24 | Outpatient (CLI) | payer MEDICARE, BC ==
--- NOTE | 2019-08-03 13:14 | RAD ---
EXAM: Chest 2 views: HISTORY: Dyspnea COMPARISON: 05/27/2018 FINDINGS: There is a normal-sized cardiomediastinal silhouette. Increased interstitial markings are present. 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 Scarring is seen in the left lung base. No consolidation is seen. The bones are unremarkable. IMPRESSION: Chronic lung disease with scarring in the left lung base.
== END 2019-08-03 12:25 | disposition home or self-care (01) ==
LOC: BICRAD 12:24
PROVIDERS: ATTEND Internal Medicine Pulmonary Disease
DX: R06.00 Dyspnea, unspecified (principal); J98.4 Other disorders of lung
CPT/HCPCS: 71046

== ENCOUNTER 2020-05-03 07:04 | Day surgery (SDC) | payer MEDICARE, BC ==
[2020-04-29 15:10] VITALS: BMI 23.7
[2020-05-03] MEDS ORDERED: PROPOFOL 40 ML ONE (08:43)
== END 2020-05-03 12:00 | disposition home or self-care (01) ==
LOC: CCL 07:04
PROVIDERS: ATTEND Internal Medicine Cardiovascular Disease
PROC: B24BZZ4 Ultrasonography of Heart with Aorta, Transesophageal (ICD-10-PCS; principal; 2020-05-03)
PROC: 5A2204Z Restoration of Cardiac Rhythm, Single (ICD-10-PCS; 2020-05-03)
DX: I48.0 Paroxysmal atrial fibrillation (principal); I08.3 Combined rheumatic disorders of mitral, aortic and tricuspid valves; I70.0 Atherosclerosis of aorta; I47.1 Supraventricular tachycardia; I25.10 Atherosclerotic heart disease of native coronary artery without angina pectoris; E78.00 Pure hypercholesterolemia, unspecified; I10 Essential (primary) hypertension; I83.12 Varicose veins of left lower extremity with inflammation; E03.9 Hypothyroidism, unspecified; Z79.01 Long term (current) use of anticoagulants; Z79.899 Other long term (current) drug therapy; Z88.2 Allergy status to sulfonamides; Z91.041 Radiographic dye allergy status; Z95.1 Presence of aortocoronary bypass graft
CPT/HCPCS: 92960; 93005; 93010; 93312; J2704

== ENCOUNTER 2023-11-06 09:40 | Outpatient (CLI) | payer MEDICARE | END 2023-11-06 09:41 | disposition home or self-care (01) | LOC: RAD 09:40 | PROVIDERS: ATTEND Family Medicine | DX: I69.891 Dysphagia following other cerebrovascular disease (principal); J69.0 Pneumonitis due to inhalation of food and vomit; R13.10 Dysphagia, unspecified; J34.89 Other specified disorders of nose and nasal sinuses | CPT/HCPCS: 74230 ==

== ENCOUNTER 2023-11-15 06:10 | Day surgery (SDC) | payer MEDICARE ==
[2023-11-14 11:39] VITALS: BMI 20.9
[2023-11-15] MEDS ORDERED: PROPOFOL 40 ML ONE (07:28)
[2023-11-15] MEDS ORDERED: Lidocaine 1% PF 5 ML VIAL ONE (07:50)
[2023-11-15] MEDS ORDERED: Ketamine In 0.9 % NaCl 50 MG/5 ML SYRINGE ONE (07:51)
== END 2023-11-15 09:15 | disposition home or self-care (01) ==
LOC: SDC 06:10
PROVIDERS: ATTEND Internal Medicine Gastroenterology
PROC: 0D717ZZ Dilation of Upper Esophagus, Via Natural or Artificial Opening (ICD-10-PCS; principal; 2023-11-15)
PROC: 0DJ08ZZ Inspection of Upper Intestinal Tract, Via Natural or Artificial Opening Endoscopic (ICD-10-PCS; 2023-11-15)
DX: R13.12 Dysphagia, oropharyngeal phase (principal); I10 Essential (primary) hypertension; I25.10 Atherosclerotic heart disease of native coronary artery without angina pectoris; I48.91 Unspecified atrial fibrillation; A15.9 Respiratory tuberculosis unspecified; N40.0 Benign prostatic hyperplasia without lower urinary tract symptoms; E78.5 Hyperlipidemia, unspecified; E03.9 Hypothyroidism, unspecified; F41.9 Anxiety disorder, unspecified; K92.2 Gastrointestinal hemorrhage, unspecified; J40 Bronchitis, not specified as acute or chronic; Z90.2 Acquired absence of lung [part of]; Z87.891 Personal history of nicotine dependence; Z93.1 Gastrostomy status; Z95.1 Presence of aortocoronary bypass graft; Z88.2 Allergy status to sulfonamides; Z88.8 Allergy status to other drugs, medicaments and biological substances; Z79.01 Long term (current) use of anticoagulants; Z79.899 Other long term (current) drug therapy; Z79.890 Hormone replacement therapy
CPT/HCPCS: 43235; 43450; J2704; J3490